=== PATIENT | male | born 1980 | race Caucasian/White ===

== ENCOUNTER 2022-03-02 15:37 | Emergency (ER) | payer BC, SELFPAY ==
[2022-03-02 15:46] VITALS: BP 153/97; PULSE 75; RESP 18; TEMP 37; O2SAT 98
--- NOTE | 2022-03-02 16:00 | DI.CT_ITS ---
Exam(s) CT ABDOMEN PELVIS W EXAM: CT ABDOMEN PELVIS W CLINICAL HISTORY: RUQ pain TECHNIQUE: Imaging Protocol: Axial computed tomography images with coronal and sagittal reformatted images were created and reviewed CONTRAST MATERIAL: Intravenous: Omnipaque 350 Contrast volume:100 mL Oral: No COMPARISON: No exams were available for comparison FINDINGS: ABDOMEN: Lung Bases: Normal where visualized. Liver: There is diffuse decreased attenuation of the liver consistent with fatty infiltration. There is focal fatty sparing around the gallbladder. No measurable mass. The liver is enlarged. Portal, Superior Mesenteric, and Splenic Veins: Unremarkable. Gallbladder and Biliary Tract: No radiodense calculus or dilation. Pancreas: Normal density, no abnormal calcifications or inflammatory process. Spleen: Normal. Adrenals: No masses seen. Kidneys: Normal size, contour and axis. No radiodense stones or obstructive uropathy. No masses seen. Abdominal Aorta: Abdominal portion non-dilated. Mild atherosclerosis is present. Bowel: No obstruction or bowel wall thickening. No evidence of appendicitis. There are surgical clip s in the right lower quadrant suggesting prior appendectomy. Peritoneal Cavity: No ascites, collection or mesenteric inflammatory response. No free air. Lymph Nodes: Within normal limits. Bones: Within normal limits for the patient's age. Soft Tissues: There is a tiny fat containing umbilical hernia. PELVIS: Bladder: Symmetric distention, no gross wall thickening. Reproductive Organs: Unremarkable as visualized. Lymph Nodes: Within normal limits. Bones: Within normal limits for the patient's age. IMPRESSION: No acute abdominal or pelvic process. RADIATION DOSE DELIVERED: 983.71mGy.cm Total DLP DATA REPOSITORY: All CT scans at this facility are submitted to the National Radiology Data Registry (NRDR) Dose Index Registry (DIR) with the [employer] ([employer]). RADIATION OPTIMIZATION: All CT scans at this facility use at least one of these dose optimization te chniques: automated exposure control; mA and/or kV adjustment per patient size (includes targeted exa ms where dose is matched to clinical indication); or iterative reconstruction.
[2022-03-02 16:15] LABS: Bilirubin Negative (Negative); Blood Negative (Negative); Clarity Clear (Clear); Glucose Negative (Negative); Ketones 15 mg/dL (Negative); Leukocyte Esterase Negative (Negative); Nitrite Negative (Negative); Urobilinogen 0.2 EU/dL (Up TO 0.2)
[2022-03-02 16:22] LABS: Absolute Basophil Count 0.05 10^3/uL (0.0-0.2); Absolute Eosinophil Count 0.06 10^3/uL (0.0-0.7); Absolute Lymphocyte Count 1.14 10^3/uL (1.2-3.4); Absolute Neutrophil Count 4.22 10^3/uL (1.2-6.7); Basophils % 0.8; HCT 45.7 % (40.0-50.0); HGB 16.1 g/dL (13.5-17.5); Lymphocytes % 19.1; MCH 32.3 pg (27.0-33.0); MCHC 35.2 % (32.0-36.0); MCV 92 fL (80-95); MPV 8.9 fL (8.0-11.0); Monocytes % 8.4; Neutrophils % 70.7; Platelet Count 195 10^3/uL (130-400); RBC 4.99 10^6/uL (4.36-5.78); RDW 11.3 % (11.8-14.1); RDW-SD 38.3 fL; WBC 5.97 10^3/uL (4.4-10.8)
--- NOTE | 2022-03-02 16:36 | ED.GENADUL_ITS ---
Discharge Plan Disposition Patient Disposition: Home Condition: Stable Discharge Details Clinical Impression: Abdominal pain, Elevated liver enzymes Primary Care Provider: None,None ED Provider: Nilay Guzman Home Meds and New Rx's Prescriptions: No Action ibuprofen 400 mg Tablet 400 mg PO TID PRN Discharge Instructions Instructions: Abdominal Pain (ED) Additional Instructions: You may continue to take ibuprofen as needed for discomfort. Please avoid acetaminophen or Tylenol as you currently have elevated liver enzymes. It is also recommended to cease any alcohol intake. We are setting you up with an outpatient ultrasound and after you have the ultrasound performed please return to the emergency department for review of results and further recommendations. If you develop any significant worsening of your symptoms or change in your condition such as fever chills, uncontrollable vomiting or severe pain return immediately to the emergency department for reassessment. Discharge Data Discharge Date/Time-TO BE ENTERED AT DEPARTURE: 03/02/22 18:28 Medical Decision Making Patient presenting to the emergency department for chief complaint of right upper quadrant pain and bloating for the last 2 days. Patient denies all other symptoms and states nothing is made it worse or better. Does drink 3-4 beers daily otherwise denies any other significant past medical history. Patient does have history of appendectomy otherwise no other abdominal surgeries. Physical exam is positive for slight and subtle Vizcarra sign and right upper quadrant tenderness otherwise no acute findings noted. We will plan on checking labs and CT imaging. Pending results will give small fluid bolus and Toradol. Review of labs show an overall unremarkable CBC with no leukocytosis,, CMP does show slightly low sodium 135, potassium at 3.1, chloride slightly low at 97, elevated anion gap of 11.9, magnesium is low at 1.6. Bilirubin is elevated at 1.9, AST of 69, ALT of 114. Alk phos is normal and lipase is within normal range. Urine shows slight ketones otherwise unremarkable. CT imaging shows some findings to suggest hepatic stenosis but otherwise no acute findings are noted. We will replete low potassium and magnesium with oral meds and discuss with general surgeon outpatient follow-up and ultrasound imaging for question of gallbladder disease. Spoke with general surgeon in regards to suspected gallbladder or liver disease. She agreed with plan of care to have patient receive outpatient ultrasound. Discussed with patient also lifestyle changes as far as reduction of alcohol, and weight loss. After discussion of diagnosis and plan of care patient has no further needs, questions, or concerns and states clear understanding to return to the emergency department for any worsening symptoms. This documentation was generated using [email or web address] dictation system, please disregard any oddities of phrase or misspellings. Imaging Data Radiologic Study: Imaging: CT Scan Radiologist's impression: Exam(s) PROCEDURE INFORMATION: Exam: CT Abdomen And Pelvis With Contrast Exam date and time: 03/02/2022 4:37 PM Age: 41 years old Clinical indication: Abdominal pain; Localized; Right upper quadrant (ruq); Patient HX: Ruq pain TECHNIQUE: Imaging protocol: Computed tomography of the abdomen and pelvis with contrast. COMPARISON: No relevant prior studies available. FINDINGS: Liver: The liver parenchyma demonstrates diffusely decreased attenuation, suggesting fatty infiltration. Gallbladder and bile ducts: Normal. No calcified stones. No ductal dilation. Pancreas: Normal. No ductal dilation. Spleen: Normal. No splenomegaly. Adrenal glands: Normal. No mass. Kidneys and ureters: Normal. No hydronephrosis. Stomach and bowel: There is mild fatty proliferation around the rectum and sigmoid colon which can be seen as sequela of prior inflammation. There is no evidence of active small or large bowel inflammation. There is no evidence for bowel obstruction. Appendix: There has been an appendectomy. Intraperitoneal space: There is no free intraperitoneal air. There is no evidence of free intraperitoneal fluid. Vasculature: The aorta and iliac arteries demonstrate mild atherosclerotic calcification without aneurysm formation. Lymph nodes: Unremarkable. No enlarged lymph nodes. Urinary bladder: Unremarkable as visualized. Reproductive: Unremarkable as visualized. Bones/joints: There is mild degenerative change of multiple lower thoracic and lumbar levels. No acute fractures or subluxations are identified. Soft tissues: There is a 1.3 x 0.5 cm fat containing umbilical hernia. IMPRESSION: 1. No acute process within the abdomen or pelvis identified. 2. Hepatic steatosis. 3. Status post appendectomy. 4. Tiny fat containing umbilical hernia. Dictated and Authenticated by: Tae Gudino MD. HPI General Mode of arrival: ambulatory . Date/Time Provider Initiated Documentation: 03/02/22 15:51 . Limitations to Documentation: no limitations . Information obtained by: patient and RN notes reviewed . History of Present Illness 41 year old M presents to the emergency department with the chief complaint of Right upper quadrant abdominal pain, described as moderate, with intensity rated at 6. Quality is described as aching, and is localized to the abdomen. Patient reports no radiation. Patient started experiencing this day(s) (2) and it has been constant. No relieving factors improve symptom(s), No exacerbating factors reported . Patient notes no other symptoms.. Patient did receive the following treatments prior to arrival, NSAID Related Data Home Medications Medication Instructions Recorded Confirmed ibuprofen 400 mg tablet 400 mg PO TID PRN 03/03/22 03/03/22 Allergies Allergy/AdvReac Type Severity Reaction Status Date / Time shellfish derived Allergy Severe Anaphylaxis Unverified 03/03/22 14:03 General Stated Complaint: Abd Prob KALIA: 3 Review of Systems Constitutional Constitutional: Denies chills, Denies fever(s) and Denies poor appetite Cardiovascular Cardiovascular: Denies chest pain and Denies dyspnea Respiratory Respiratory: Denies cough and Denies dyspnea Gastrointestinal Gastrointestinal: Reports as per HPI, Reports abdominal pain, Denies melena, Reports bloating, Denies change in bowel habits, Denies constipation, Denies diarrhea, Denies nausea and Denies vomiting Genitourinary Genitourinary: Denies hematuria, Denies difficulty urinating, Denies dysuria and Denies flank pain Integumentary/Breasts Skin/Breast: Denies rash PFSH All Active Problems Abdominal pain (Acute) Elevated liver enzymes (Acute) Abdominal pain (Acute) Social History Smoking/Tobacco Use Status: Former Tobacco Use Smoking risk assessment performed?: Yes Alcohol Intake: current Alcohol Intake frequency: 3 or more drinks per day Alcohol type: beer Drug use: Never Substance use type: does not use Do you feel safe at home: Yes Do you feel safe in your relationship?: Yes Exam Const General: cooperative Orientation: alert, awake and oriented x3 Resp Effort & Inspection: normal respiratory effort and able to speak in complete sentences Auscultation: clear to auscultation bilaterally Cardio Rate: regular rate Rhythm: regular rhythm Heart Sounds: S1 normal and S2 normal GI Palpation: soft, not firm, no guarding, no masses, no pulsatile masses, not rigid, no splenomegaly and tender in the RUQ Auscultation: normal bowel sounds Back/Spine/Pelvis Back: no CVA tenderness Neuro General: patient alert, patient awake, patient oriented x3, gait normal and moves all extremities Course Vital Signs Vital signs: Vital Signs Temperature 37.0 C 03/02/22 15:46 Pulse 75 03/02/22 15:46 Respiratory Rate 18 03/02/22 15:46 Blood Pressure 153/97 H 03/02/22 15:46 Pulse Oximetry 98 03/02/22 15:46 Temperature 37.0 C 03/02/22 15:46 Temperature Source Skin 03/02/22 15:46 Pulse 75 03/02/22 15:46 Respiratory Rate 18 03/02/22 15:46 Respiratory Effort 03/02/22 15:49 Blood Pressure 153/97 H 03/02/22 15:46 Blood Pressure Position Sitting 03/02/22 15:46 Pulse Oximetry 98 03/02/22 15:46 Oxygen Delivery Method Room Air 03/02/22 15:46 Oxygen Flow Rate 0 03/02/22 15:46 Pain Level 3 03/02/22 15:46 Lab/Test Results Lab/Test Results: Laboratory Tests Range/Units 03/02/22 03/02/22 16:08 16:15 WBC (4.4-10.8) 10^3/uL 5.97 RBC (4.36-5.78) 10^6/uL 4.99 Hgb (13.5-17.5) g/dL 16.1 Hct (40.0-50.0) % 45.7 MCV (80-95) fL 92 MCH (27.0-33.0) pg 32.3 MCHC (32.0-36.0) % 35.2 RDW (11.8-14.1) % 11.3 L Plt Count (130-400) 10^3/uL 195 MPV (8.0-11.0) fL 8.9 Immature Gran % 0.0 Neutrophils % 70.7 Lymphocytes % 19.1 Monocytes % 8.4 Eosinophils % 1.0 Basophils % 0.8 Nucleated RBC % (0.0-0.3) % 0.0 Absolute Neutrophils (1.2-6.7) 10^3/uL 4.22 Absolute Lymphocytes (1.2-3.4) 10^3/uL 1.14 L Absolute Monocytes (0.1-0.8) 10^3/uL 0.50 Absolute Eosinophils (0.0-0.7) 10^3/uL 0.06 Absolute Basophils (0.0-0.2) 10^3/uL 0.05 Urine Color (Yellow) Yellow Urine Clarity (Clear) Clear Urine pH (5-8) 6.0 Ur Specific [place] (1.005-1.025) 1.010 Urine Protein (Negative) mg/dL Negative Urine Ketones (Negative) mg/dL 15 H Urine Blood (Negative) Negative Urine Nitrite (Negative) Negative Urine Bilirubin (Negative) Negative Urine Urobilinogen (Up TO 0.2) EU/dL 0.2 Ur Leukocyte Esterase (Negative) Negative Urine Glucose (Negative) mg/dL Negative PAWSS Have you Been Recently Intoxicated or Drunk Within the Last 30 days?: Yes Have you Ever Experienced Previous Episodes of Alcohol Withdrawal?: No Have you ever Experienced Withdrawal Seizures?: No Have you ever Experienced Delirium Tremens(DT)s?: No Have you ever undergone Alcohol Rehabilitation Treatment (i.e, inpt ot outpatient treatment programs)?: No Have you ever Experienced Blackouts?: No Have you ever Combined Alcohol with other Downers within the last 90 days?: No Have you ever Combined Alcohol with any other Substance of Abuse during the last 90 days?: No Positive Blood Alcohol level on Presentation? [PCS.BAL]: No Evidence of Increased Autonomic Activity (i.e. HR>120, tremor, sweating, agitation, nausea)?: No Result: 1
[2022-03-02 16:38] LABS: ALT 114 U/L (16-63); AST 69 U/L (15-37); Albumin 4.8 g/dL (3.4-5.0); Alkaline Phosphatase 67 U/L (46-116); Anion Gap 11.9 mmol/L (3-11); BUN 9 mg/dL (7-18); Bilirubin, Total 1.9 mg/dL (0.2-1.0); CO2 26.1 mmol/L (21.0-32.0); Calcium 8.8 mg/dL (8.5-10.1); Chloride 97 mmol/L (98-107); Estimated GFR 98.18 (mL/min/1.73m2); Glucose 87 mg/dL (74-106); Lipase 94 U/L (73-393); Magnesium 1.6 mg/dL (1.8-2.4); Potassium 3.1 mmol/L (3.5-5.1); Sodium 135 mmol/L (136-145); Total Protein 8.2 g/dL (6.4-8.2)
[2022-03-02] MEDS: Normal Saline - Diluent 50 ML VIAL IJ (16:42)
[2022-03-02] MEDS: Omnipaque 350 MG/ML 100 ML BTL IJ (16:42)
[2022-03-02] MEDS: Normal Saline 1,000 ML 1000 ML IV (16:48)
[2022-03-02] MEDS: Ketorolac 15 MG/ML VIAL IVP (16:55)
[2022-03-02] MEDS: Magnesium Oxide 400 MG TAB PO (16:55)
[2022-03-02] MEDS: Potassium Chloride 20 MEQ TABCR 40 MEQ PO (16:55)
--- NOTE | 2022-03-02 17:08 | DI.VRAD_ITS ---
PROCEDURE INFORMATION: Exam: CT Abdomen And Pelvis With Contrast Exam date and time: 03/02/2022 4:37 PM Age: 41 years old Clinical indication: Abdominal pain; Localized; Right upper quadrant (ruq); Patient HX: Ruq pain TECHNIQUE: Imaging protocol: Computed tomography of the abdomen and pelvis with contrast. COMPARISON: No relevant prior studies available. FINDINGS: Liver: The liver parenchyma demonstrates diffusely decreased attenuation, suggesting fatty infiltration. Gallbladder and bile ducts: Normal. No calcified stones. No ductal dilation. Pancreas: Normal. No ductal dilation. Spleen: Normal. No splenomegaly. Adrenal glands: Normal. No mass. Kidneys and ureters: Normal. No hydronephrosis. Stomach and bowel: There is mild fatty proliferation around the rectum and sigmoid colon which can be seen as sequela of prior inflammation. There is no evidence of active small or large bowel inflammation. There is no evidence for bowel obstruction. Appendix: There has been an appendectomy. Intraperitoneal space: There is no free intraperitoneal air. There is no evidence of free intraperitoneal fluid. Vasculature: The aorta and iliac arteries demonstrate mild atherosclerotic calcification without aneurysm formation. Lymph nodes: Unremarkable. No enlarged lymph nodes. Urinary bladder: Unremarkable as visualized. Reproductive: Unremarkable as visualized. Bones/joints: There is mild degenerative change of multiple lower thoracic and lumbar levels. No acute fractures or subluxations are identified. Soft tissues: There is a 1.3 x 0.5 cm fat containing umbilical hernia. IMPRESSION: 1. No acute process within the abdomen or pelvis identified. 2. Hepatic steatosis. 3. Status post appendectomy. 4. Tiny fat containing umbilical hernia. Dictated and Authenticated by: Tae Gudino MD. Ordering:CARINE Pemberton MD
[2022-03-02 18:15] VITALS: BP 144/94; PULSE 66; TEMP 37; O2SAT 97
== END 2022-03-02 18:28 | disposition home or self-care (01) ==
PROVIDERS: Emergency Provider Nurse Practitioner Family
DX: R10.11 Right upper quadrant pain (principal); R14.0 Abdominal distension (gaseous); R94.5 Abnormal results of liver function studies; R10.811 Right upper quadrant abdominal tenderness; E87.1 Hypo-osmolality and hyponatremia; E83.42 Hypomagnesemia; E80.7 Disorder of bilirubin metabolism, unspecified; Z90.49 Acquired absence of other specified parts of digestive tract
CPT/HCPCS: 80053; 83690; 96361; 96374; 99285; 74177; 81003; 83735; 85025; 99284; J1885; J3490

== ENCOUNTER 2022-03-03 13:46 | Emergency (ER) | payer BC, SELFPAY ==
[2022-03-03 14:01] VITALS: BP 153/87; PULSE 63; RESP 18; TEMP 36.5; O2SAT 97
--- NOTE | 2022-03-03 14:08 | ED.GENADUL_ITS ---
Discharge Plan Disposition Patient Disposition: Home Condition: Improving Discharge Details Clinical Impression: Abdominal pain Primary Care Provider: None,None ED Provider: Jaime Sun Home Meds and New Rx's Prescriptions: Continued ibuprofen 400 mg Tablet 400 mg PO TID PRN Discharge Instructions Instructions: Abdominal Pain (ED) Additional Instructions: Home to rest today. Resume normal routine and activities. Your ultrasound today showed evidence of a fatty liver but no other acute pathology was seen. Return to the emergency department for any acute concern. Medical Decision Making 41-year-old male presents for recheck following evaluation yesterday that included laboratories and CT imaging. He was referred for follow-up ultrasound as an outpatient today; this reveals fatty liver but no other acute pathology. Patient states he is feeling improved. He has developed some loose stool but otherwise no complaints and no significant or persistent abdominal pain. He is stable and appropriate for discharge. HPI General Mode of arrival: ambulatory . Date/Time Provider Initiated Documentation: 03/03/22 14:02 . Limitations to Documentation: no limitations . Information obtained by: patient . History of Present Illness 41 year old M presents to the emergency department with the chief complaint of Recheck following ultrasound, feeling better, and is localized to the abdomen. Patient started experiencing this hour(s) No relieving factors improve symptom(s), No exacerbating factors reported . Patient did receive the following treatments prior to arrival, none Related Data Home Medications Medication Instructions Recorded Confirmed ibuprofen 400 mg tablet 400 mg PO TID PRN 03/03/22 03/03/22 Allergies Allergy/AdvReac Type Severity Reaction Status Date / Time shellfish derived Allergy Severe Anaphylaxis Unverified 03/03/22 14:03 General Stated Complaint: Recheck KALIA: 5 Review of Systems Narrative: 6 systems reviewed and otherwise negative PFSH All Active Problems Abdominal pain (Acute) Elevated liver enzymes (Acute) Abdominal pain (Acute) Social History Smoking/Tobacco Use Status: Former Tobacco Use Smoking risk assessment performed?: Yes Alcohol Intake: current Alcohol Intake frequency: 3 or more drinks per day Alcohol type: beer Drug use: Never Substance use type: does not use Do you feel safe at home: Yes Do you feel safe in your relationship?: Yes Exam Narrative Exam Narrative: GEN: awake, alert, oriented 3. Pleasant, well groomed, interactive. HEAD: Normocephalic, atraumatic EYES: PERRL, EOMI NECK: Full ROM, no MANJEET, no menigismus CHEST/RESP: No respiratory distress Neuro: Grossly normal neurologic exam, conversant, interactive. Psych: Speech fluent, thoughts congruent, affect normal Course Vital Signs Vital signs: Vital Signs Temperature 36.5 C 03/03/22 14:01 Pulse 63 03/03/22 14:01 Respiratory Rate 18 03/03/22 14:01 Blood Pressure 153/87 H 03/03/22 14:01 Pulse Oximetry 97 03/03/22 14:01 Temperature 36.5 C 03/03/22 14:01 Temperature Source Skin 03/03/22 14:01 Pulse 63 03/03/22 14:01 Respiratory Rate 18 03/03/22 14:01 Respiratory Effort Non-Labored 03/03/22 14:03 Blood Pressure 153/87 H 03/03/22 14:01 Blood Pressure Position Sitting 03/03/22 14:01 Pulse Oximetry 97 03/03/22 14:01 Oxygen Delivery Method Room Air 03/03/22 14:01 Oxygen Flow Rate 0 03/03/22 14:01 Pain Level 0 03/03/22 14:01
== END 2022-03-03 14:13 | disposition home or self-care (01) ==
PROVIDERS: Emergency Provider Emergency Medicine
DX: R10.9 Unspecified abdominal pain (principal)